=== PATIENT | male | born 1975 | race Caucasian/White ===

== ENCOUNTER 2016-04-01 09:00 | Emergency (ER) | payer OTHER ==
[~2016-04-01] VITALS: Ht 177.8 cm; Wt 111.4 kg
[~2016-04-01 09:00] MED LIST: FLUT16SP NS; GEMF600T PO; LISI-608 PO; METO-272 PO; MULT1CAP33 PO; OMEP20CA11 PO; OXYC1TAB24 PO; SENN1TAB90 PO
--- NOTE | 2016-04-01 09:05 | ED.REPORT ---
HPI-Abd Pain M Under 41 Date of Service Apr 01, 2016 ED Provider: Dr. Arredondo Pt is a 40 year old male with a history of pancreatitis in July of this year, who presents to the ED with complaints of abdominal pain that started several days ago. He reports the pain as being generalized and radiating to his back. This pain is associated with nausea and diarrhea, he denies any vomiting or recent alcohol intake. These symptoms are similar to his previous episode of pancreatitis. He additionally reports that he has been out of his lisinopril for the past four days. He has no other complaints. Nursing Notes Stated Complaint: POSS PANCREATITIS Nursing Notes Reviewed: Yes Allergies: Coded Allergies: No Known Allergies (Verified Allergy, Unknown, 08/06/15) Scheduled Fluticasone Propionate (Fluticasone Propionate Nasal) 16 Gm [place].susp 2 SPRAY NS MORNING Lisinopril/HCTZ 20-25 mg (Zestoretic 20-25 mg) 1 Each Tablet 2 EACH PO DAILY Lisinopril/HCTZ 20-25 mg (Zestoretic 20-25 mg) 1 Each Tablet 2 EACH PO DAILY Metoprolol Succinate ER (Metoprolol Succinate ER) 50 Mg Tab.er.24h 50 MG PO DAILY Multivitamin (Multivitamins) 1 Each Capsule 1 EACH PO DAILY Omeprazole (Omeprazole) 20 Mg Capsule.dr 20 MG PO BID Sennosides/Docusate Sodium (Senna-Docusate Sodium Tablet) 1 Each Tablet 1 EACH PO BID Scheduled PRN oxyCODONE-Acetaminophen 5-325 mg (oxyCODONE-Acetaminophen 5-325 mg) 1 Each Tablet 1 TAB PO Q6H PRN PRN For Pain Miscellaneous Medications Gemfibrozil (Lopid) 600 Mg Tablet 160 MG PO General Time Seen by MD: 09:11 Chief Complaint Abdominal pain Hx Obtained From: Patient Arrived By: Walk-in Sudden in Onset?: Yes Onset Occurred: 3 days ago Symptom Duration: Since onset Location: : Diffuse Quality: Painful Radiation: : Back Severity: Current: Moderate Severity: Maximum: Moderate Similar Sx Previous: Yes Past Medical History Past Medical History Chronic nasal congestion Pancreatitis Hypertriglyceridemia Alcohol abuse Dyslipidemia Reports: GERD, Hypertension Past Surgical History right achilles tendon surgery Smoking History Former Smoker Social History Patient is not a daily drinker, but does drink "lots of beer" when he does drink Drug Use: THC Other Social History: Lives alone Occupation [employer] Status Independent Review of Systems Constitutional: Denies: Chills, Fever, Malaise, Weakness - generalized Respiratory: Denies: Non-productive cough, Shortness of breath, Wheezing Cardiovascular: Denies: Chest pain, Syncope GI: Reports: Abdominal pain, Diarrhea, Nausea, Denies: Constipation, Vomiting Male: Denies Dysuria, Denies Flank pain, Denies Urinary frequency, Denies Urinary urgency Musculoskeletal: Denies: Back pain, Extremity pain, Neck pain Complete sys rev & neg: except as marked. Physical Exam Initial Vital Signs Vital Signs (First) Date Time Temp Pulse Resp B/P Pulse Ox O2 Delivery O2 Flow Rate FiO2 04/01/16 09:06 36.2 78 18 165/126 100 04/01/16 09:35 Room Air Initial VS: Reviewed Head / Eyes: Atraumatic, Normocephalic, PERRL ENT: Mucous membranes moist, Conjunctiva normal, No scleral icterus Neck: Supple, Non-tender, Full range of motion Skin: Warm, Dry, No cyanosis Neurologic: Alert, Oriented, Nonfocal Psychiatric: Mood/affect normal, Behavior normal, Normal thought content General/Constitutional: Awake, Alert, Well appearing, Well nourished, Cooperative Appearance / Presentation: Positive: Obese, Uncomfortable Respiratory / Chest: Atraumatic, Breath sounds NL, Breath sounds = bilat, No respiratory distress Cardiovascular: Heart rate NL, Regular rhythm, Heart sounds NL, No gallop, No murmurs, No rubs Abdomen: Soft, No guarding, No rebound Tenderness/Guarding/Rebound: Positive: Tender LUQ... (Moderate) Back: Atraumatic, Inspection NL, No CVA tenderness Interpretation & Diagnostics Lab Results Interpretation Result Diagram: 04/01/16 0920 04/01/16 0920 Test 04/01/16 09:20 04/01/16 09:30 White Blood Count 10.6th/mm3 (3.8-10.1) Red Blood Count 5.46mil/mm3 (4.40-5.80) Hemoglobin 16.1g/dL (13.8-17.2) Hematocrit 46.8% (41.0-50.0) Mean Corpuscular Volume 85.7fL (81-100) Mean Corpuscular Hemoglobin 29.5pg (27.0-35.0) Mean Corpuscular Hemoglobin Concent 34.4% (32.0-37.0) Red Cell Distribution Width 14.0% (12.3-15.4) Platelet Count 256bil/L (150-400) Neutrophils (%) (Auto) 67.2% (40-74) Lymphocytes (%) (Auto) 22.6% (14-46) Monocytes (%) (Auto) 8.6% (4-12) Eosinophils (%) (Auto) 0.8% (0-5) Basophils (%) (Auto) 0.3% (0-3) Sodium Level 136mEq/L (134-144) Potassium Level 4.4mEq/L (3.5-5.2) Chloride Level 101mEq/L (97-108) Carbon Dioxide Level 23mmol/L (18-29) Blood Urea Nitrogen 11mg/dL (6-20) Creatinine 0.67mg/dL (0.76-1.27) Estimat Glomerular Filtration Rate 140mL/min (>59) Glucose Level 112mg/dL (60-99) Calcium Level 8.9mg/dL (8.5-10.1) Magnesium Level 2.0mg/dL (1.6-2.6) Total Bilirubin 0.3mg/dL (0.0-1.2) Aspartate Amino Transf (AST/SGOT) 23U/L (0-50) Alanine Aminotransferase (ALT/SGPT) 22U/L (0-44) Alkaline Phosphatase 57U/L (25-150) Total Protein 7.3g/dL (6.4-8.4) Albumin 4.1g/dL (3.4-5.0) Lipase 59U/L (13-60) ECG Interpretation ECG Interpretation: SR - 68 Time: 09:34 Normal ECG Interpretation: Normal axis, Normal intervals Re-Eval/Medical Decision Med Decision/Clinical Course Overall, nonspecific abdominal pain no evidence of pancreatitis not vomiting labs unremarkable, I see no indication for a CAT scan at this time. Conservative management and qaym-rwl-nuixacs medications are recommended along with close primary care doctor follow-up. Return precautions given. Source of Hx: Old records Re-Evaluation/Progress : Time of Eval: 10:18 Re-Evaluation/Progress Note: Pt is rechecked and informed of his lab results and the plan to discharge him at this time. He understands and agrees, all questions are addressed. Counseled Regarding: Diagnosis, Lab results, Need for follow-up, When/why to return to ED Patient Discharge & Departure Primary Impression: Pain, abdominal, nonspecific Disposition: Home Discharge Condition All VS Reviewed: Yes Condition: Stable Patient Instructions: Acute Abdominal Pain (ED) Additional Instructions: Overall your laboratory studies are unremarkable. It does not appear the pancreatitis or life-threatening issues at this time. Take [id number]-gjavlob medication as needed for pain. Resume your blood pressure medication. Call your doctor tomorrow for a close follow-up appointment. Return to ER as needed for persistent vomiting, high fever, intractable pain or other concerns. Referrals: Carol Pro ARNP (PCP) Matilde Attestation Portions of this note were transcribed by Emi Melvin. I, Dr. Arredondo personally performed the history, physical exam and medical decision-making; I reviewed and confirmed the accuracy of the information in the transcribed note. Signed by: Matilde Bacon, 04/01/2016 10:17 copies to: Carol Pro ARNP O'Kelley, Timothy S DO Apr 01, 2016 09:05 JOHNY MELVIN Apr 01, 2016 09:23
[2016-04-01 09:06] VITALS: BP 165/126; PULSE 78; RESP 18; O2SAT 100
[2016-04-01] MEDS ORDERED: 0.9% Sodium Chloride 1,000 ML IV ONE (09:09)
[2016-04-01] MEDS ORDERED: HYDROmorphone 1 mg/mL Inj IVPUSH PRN (09:10)
[2016-04-01] MEDS ORDERED: Ondansetron 2 mg/mL 2 mL Inj IVPUSH PRN (09:10)
[2016-04-01] MEDS ORDERED: Lisinopril 40 Tablet PO ONE (09:15)
[2016-04-01 09:35] VITALS: BP 151/109; PULSE 74; RESP 16; O2SAT 99
[2016-04-01 09:49] LABS: BASOPHILS % (AUTO) 0.3 % (0-3); EOSINOPHILS % (AUTO) 0.8 % (0-5); MONOCYTES % (AUTO) 8.6 % (4-12); Mean Corpuscular Hemoglobin 29.5 pg (27.0-35.0); Mean Corpuscular Volume 85.7 fL (81-100); NEUTROPHILS % (AUTO) 67.2 % (40-74); Platelet Count 256 bil/L (150-400)
[2016-04-01] MEDS ORDERED: LISI-608 PO (10:15)
[2016-04-01 10:40] VITALS: BP 172/118; PULSE 80; RESP 17; O2SAT 97
== END 2016-04-01 10:51 | disposition home or self-care (01) ==
LOC: SED 09:00
DX: R10.12 Left upper quadrant pain (principal); I10 Essential (primary) hypertension; K21.9 Gastro-esophageal reflux disease without esophagitis; E78.5 Hyperlipidemia, unspecified; Z87.891 Personal history of nicotine dependence
CPT/HCPCS: 36415; 80053; 83690; 83735; 85025; 93005; 96361; 96374; 96375; 99285; J1170; J2405; J7030

== ENCOUNTER 2016-10-13 17:42 | Emergency (ER) | payer OTHER ==
[~2016-10-13] VITALS: Ht 180.3 cm; Wt 111.4 kg
[2016-10-13 17:54] VITALS: BP 165/104; PULSE 85; RESP 18; O2SAT 98
--- NOTE | 2016-10-13 20:24 | ED.REPORT ---
HPI-Hand Prob/Inj Date of Service Oct 13, 2016 ED Provider: Charly Wray MD 40 y/o mal with no pertinent hx presents to the ED complaining of left hand lateral laceration, onset 3 hours ago. The pt was using a coin box inspector when he accidently cut his hand, just under his left little finger. He denies lack of sensation in his left hand and any other injuries. His tetanus is not up to date. Nursing Notes Stated Complaint: LEFT FINGER LACERATION Chief Complaint: Laceration Nursing Notes Reviewed: Yes Allergies: Coded Allergies: No Known Allergies (Verified Allergy, Unknown, 08/06/15) Scheduled Fluticasone Propionate (Fluticasone Propionate Nasal) 16 Gm [place].susp 2 SPRAY NS MORNING Lisinopril/HCTZ 20-25 mg (Zestoretic 20-25 mg) 1 Each Tablet 2 EACH PO DAILY Lisinopril/HCTZ 20-25 mg (Zestoretic 20-25 mg) 1 Each Tablet 2 EACH PO DAILY Metoprolol Succinate ER (Metoprolol Succinate ER) 50 Mg Tab.er.24h 50 MG PO DAILY Multivitamin (Multivitamins) 1 Each Capsule 1 EACH PO DAILY Omeprazole (Omeprazole) 20 Mg Capsule.dr 20 MG PO BID Sennosides/Docusate Sodium (Senna-Docusate Sodium Tablet) 1 Each Tablet 1 EACH PO BID Scheduled PRN oxyCODONE-Acetaminophen 5-325 mg (oxyCODONE-Acetaminophen 5-325 mg) 1 Each Tablet 1 TAB PO Q6H PRN PRN For Pain Miscellaneous Medications Gemfibrozil (Lopid) 600 Mg Tablet 160 MG PO General Time Seen by Provider: 20:28 Chief Complaint Hand injury left Hx Obtained From: Patient Arrived By: Walk-in Onset Occurred: 5 - 8 hours ago Symptom Duration: Since onset Caused by: Knife wound Location: Left Hand: : Hypothenar eminence Quality: Painful Radiation: Does not radiate Severity: Current: Moderate Severity: Maximum: Moderate Immunizations: Tetanus not up to date Recent Healthcare: No recent doctor visit Similar Sx Previous: No Past Medical History Past Medical History Chronic nasal congestion Pancreatitis Hypertriglyceridemia Alcohol abuse Dyslipidemia Reports: GERD, Hypertension Past Surgical History right achilles tendon surgery Smoking History Former Smoker Social History Patient is not a daily drinker, but does drink "lots of beer" when he does drink Drug Use: THC Other Social History: 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 Physical Exam Initial Vital Signs Vital Signs (First) Date Time Temp Pulse Resp B/P Pulse Ox O2 Delivery O2 Flow Rate FiO2 10/13/16 17:54 36.4 85 18 165/104 98 Room Air Initial VS: Reviewed Head / Eyes: Atraumatic, Normocephalic Neck: Supple, Non-tender, Full range of motion Respiratory: Breath sounds normal, No respiratory distress Cardiovascular: Intact distal pulses Extremities: Vascular intact, Neuro intact, No swelling, No tenderness Skin: Warm, Dry, No cyanosis Neurologic: Alert, Oriented, Nonfocal Wrist / Hand: Full range of motion, No erythema, No deformity, Neurologic intact, Vascular intact 18 mm transverse laceration over the ulnar aspect of the left hand at the hypothenar eminence. General/Constitutional: Awake, Alert, Cooperative Procedures Laceration Management Laceration Management: 18mm wound Time: 20:31 Procedure Performed by: ED physician Consent / Setup / Site Prep: Consent from patient, Time-out performed, Hand hygiene observed, Stand sterile technique Location of Wound: Laterally left hand Local Anesthesia: Lidocaine w epi 1% Digital Block: No Debridement: None Foreign Body Explore / Removal: Explored for foreign body Repair Skin: Nylon (4o) # Sutures - SubQ: 5 Closure Layers: 1 Suture Technique: Running Post-Procedure / Complications: Antibiotic oint applied, Dressing applied, No complications, Condition improved, Tolerated procedure well, Patient stable Re-Eval/Medical Decision Re-Evaluation/Progress : Time of Eval: 20:38 Re-Evaluation/Progress Note: Discussed diagnosis and plan to discharge. Pt understands and agrees with the plan. F/U instructions and RTER warning given. All questions addressed. Counseled Regarding: Diagnosis, Need for follow-up, When/why to return to ED Discharge & Departure Primary Impression: Laceration Disposition: Home Discharge Condition All VS Reviewed: Yes Condition: Stable Patient Instructions: Laceration (ED) Additional Instructions: Thank you for entrusting us with your care today. Keep the wound clean and dry but do not soak it. Follow up with your primary care provider or return to the emergency department to get the sutures removed in 7-10 days. Return to the emergency department in case of any new or worsening symptoms. Tetanus immunization was updated today. Referrals: Carol Pro ARNP (PCP) Scribe Attestation Portions of this note were transcribed by Annamarie Trevizo. I,, personally performed the history, physical exam and medical decision-making;I reviewed and confirmed the accuracy of the information in the transcribed note. Signed by Matilde Alfonso. 10/13/16 21:03 copies to: Carol Pro ARNP Brownell, Kirk H MD Oct 13, 2016 20:24 Annamarie Trevizo Oct 13, 2016 20:35
[2016-10-13 20:25] VITALS: BP 164/112; PULSE 85; O2SAT 99
[2016-10-13] MEDS ORDERED: TdaP Vaccine 0.5 mL Inj IM ONE (20:25)
[2016-10-13] MEDS ORDERED: oxyCODONE-Acetamin 5-325 mg Tablet PO ONE (20:30)
[2016-10-13 20:59] VITALS: BP 164/112; PULSE 85; RESP 18; O2SAT 99
== END 2016-10-13 21:01 | disposition home or self-care (01) ==
LOC: SED 17:42
DX: S61.412A Laceration without foreign body of left hand, initial encounter (principal); Y28.8XXA Contact with other sharp object, undetermined intent, initial encounter; Y93.89 Activity, other specified; Y92.89 Other specified places as the place of occurrence of the external cause; Y99.8 Other external cause status; K21.9 Gastro-esophageal reflux disease without esophagitis; I10 Essential (primary) hypertension; Z87.891 Personal history of nicotine dependence; Z23 Encounter for immunization